=== PATIENT | female | born 1940 | race Caucasian/White ===

== ENCOUNTER → 2016-08-01 | Emergency (ER) | payer MEDICARE, OTHER ==
[~2016-08-01] VITALS: Ht 152.4 cm; Wt 99.8 kg
[~2016-08-01] MED LIST: ASPI-605 PO; CARV6.252 PO; FAMOTIDINE/PF INJ 20 MG/2 ML VIAL IV ONE; IV NS 0.9% 1,000 ML BAG IV ONE; IV NS 0.9% 1,000 ML ONE; IV SET PRIMARY 1 EA INFUS.SET MC ONE; IV SET PRIMARY PUMP SET 1 EA INFUS.SET MC ONE; diphenhydrAMINE HCL 50 MG/ML VIAL IV ONE; diphenhydrAMINE HCL 50 MG/ML VIAL ONE; methylPREDNISolone SOD SUCC 125 MG/2ML VIAL IV ONE; methylPREDNISolone SOD SUCC 125 MG/2ML VIAL ONE
--- NOTE | 2016-08-01 01:10 | NUR ---
To bed 10 a 76 yo female bib with c/o generalized body rashes. Per patient she has been itching yesterday. Patient is aaox4, wallisian speaking, noted with generalized body rash, flushed warm skin noted. Respiration even and unlabored. No SOB. Gowned. Placed on pvc monitor. Comfort measures rendered. Awaiting for er md coe.
--- NOTE | 2016-08-01 02:25 | NUR ---
Started saline lock 22g on left hand.
--- NOTE | 2016-08-01 04:29 | NUR ---
IV removed. Catheter intact and site benign. Pressure and 4x4 applied to site. No bleeding noted. Patient discharged to home in stable condition. Written and verbal after care instructions given. Patient verbalizes understanding of instruction. Patient is ambulatory with steady gait.
[2016-08-01 04:32] VITALS: BP 147/62
== END | disposition home or self-care (01) ==
LOC: ER 00:31
DX: L50.9 Urticaria, unspecified (principal); E11.9 Type 2 diabetes mellitus without complications; E78.00 Pure hypercholesterolemia, unspecified; I10 Essential (primary) hypertension; K21.9 Gastro-esophageal reflux disease without esophagitis; L40.9 Psoriasis, unspecified; Z79.82 Long term (current) use of aspirin; Z88.5 Allergy status to narcotic agent; Z91.018 Allergy to other foods
CPT/HCPCS: A4606; J1200; J2930; J3490; J7030; Z7610

== ENCOUNTER 2016-08-04 12:26 | Emergency (ER) | payer MEDICARE, OTHER ==
[~2016-08-04] VITALS: Ht 152.4 cm; Wt 70.8 kg
[~2016-08-04 12:26] MED LIST changes: -FAMOTIDINE/PF INJ 20 MG/2 ML VIAL IV ONE; -IV NS 0.9% 1,000 ML BAG IV ONE; -IV NS 0.9% 1,000 ML ONE; -IV SET PRIMARY 1 EA INFUS.SET MC ONE; -IV SET PRIMARY PUMP SET 1 EA INFUS.SET MC ONE; -diphenhydrAMINE HCL 50 MG/ML VIAL IV ONE; -diphenhydrAMINE HCL 50 MG/ML VIAL ONE; -methylPREDNISolone SOD SUCC 125 MG/2ML VIAL IV ONE; -methylPREDNISolone SOD SUCC 125 MG/2ML VIAL ONE
[2016-08-04 12:51] LABS: BASOPHILS % (AUTO) 0.3 % (0.0-2.0); EOSINOPHILS # (AUTO) 0.2 /CMM (0.0-0.7); EOSINOPHILS % (AUTO) 2.1 % (0.0-6.0); HEMATOCRIT 39 % (33-45); HEMOGLOBIN 12.9 g/dL (11.5-14.8); LYMPHOCYTES # (AUTO) 1.9 /CMM (0.8-4.8); LYMPHOCYTES % (AUTO) 24.8 % (20.0-44.0); MEAN CORPUSCULAR HEMOGLOBIN 29 PG (26.0-33.0); MEAN CORPUSCULAR HGB CONC 33 g/dl (31.0-36.0); MEAN CORPUSCULAR VOLUME 86 fL (82-100); MONOCYTES # (AUTO) 0.3 /CMM (0.1-1.30); NEUTROPHILS # (AUTO) 5.4 /CMM (1.8-8.9); NEUTROPHILS % (AUTO) 68.8 % (43.0-81.0); PLATELET COUNT (AUTO) 326 /CMM (150-450); RDW COEFFICIENT OF VARIATION 13.6 (11.5-15.0); WHITE BLOOD COUNT (AUTO) 7.8 K/uL (4.3-11.0)
[2016-08-04] MEDS ORDERED: diphenhydrAMINE HCL 50 MG/ML VIAL IV ONE (13:00)
[2016-08-04] MEDS ORDERED: methylPREDNISolone SOD SUCC 125 MG/2ML VIAL IV ONE (13:00)
[2016-08-04 13:01] LABS: CALCIUM, SERUM 9.1 mg/dL (8.5-10.1); POTASSIUM 3.3 mmol/L (3.5-5.1)
[2016-08-04] MEDS ORDERED: predniSONE 20 MG TABLET ONE (13:05)
[2016-08-04] MEDS ORDERED: diphenhydrAMINE HCL 50 MG CAPSULE ONE (13:05)
[2016-08-04 13:19] VITALS: BP 145/83
--- NOTE | 2016-08-04 13:20 | NUR ---
Patient discharged to home in stable condition. Written and verbal after care instructions given. Patient verbalizes understanding of instruction. Prescription given to patient and patients family.
[2016-08-04] MEDS ORDERED: predniSONE 10 MG TABLET PO ONE (13:30)
[2016-08-04] MEDS ORDERED: diphenhydrAMINE HCL 50 MG CAPSULE PO ONE (13:30)
== END 2016-08-04 13:26 | disposition home or self-care (01) ==
LOC: ER 12:27
DX: L50.9 Urticaria, unspecified (principal); I10 Essential (primary) hypertension; I99.8 Other disorder of circulatory system; E78.00 Pure hypercholesterolemia, unspecified; Z88.6 Allergy status to analgesic agent; Z91.018 Allergy to other foods
CPT/HCPCS: 36415; 80048; 85025; 99284; A4606; J7512; Q0163; Z7610

== ENCOUNTER 2017-02-23 13:58 | Emergency (ER) | payer MEDICARE, OTHER ==
[~2017-02-23] VITALS: Ht 154.9 cm; Wt 69.9 kg
--- NOTE | 2017-02-23 14:40 | NUR ---
BB FAMILY: PELVIC PAIN, AND PAIN ON URINATION X 1 MONTH. SEEN BY MD FOR EVAL. NAD NOTED. FAMILY MEMBER AT BS FOR INFO. VSS. SAFETY AND COMFORT MEASURES PROVIDED. WILL MONITOR.
[2017-02-23 15:01] LABS: BASOPHILS % (AUTO) 0.6 % (0.0-2.0); EOSINOPHILS # (AUTO) 0.2 /CMM (0.0-0.7); EOSINOPHILS % (AUTO) 2.8 % (0.0-6.0); HEMATOCRIT 37 % (33-45); HEMOGLOBIN 12.5 g/dL (11.5-14.8); LYMPHOCYTES # (AUTO) 1.9 /CMM (0.8-4.8); LYMPHOCYTES % (AUTO) 24.3 % (20.0-44.0); MEAN CORPUSCULAR HEMOGLOBIN 29 PG (26.0-33.0); MEAN CORPUSCULAR HGB CONC 34 g/dl (31.0-36.0); MEAN CORPUSCULAR VOLUME 85 fL (82-100); MONOCYTES # (AUTO) 0.4 /CMM (0.1-1.30); MONOCYTES % (AUTO) 4.8 % (2.0-12.0); NEUTROPHILS # (AUTO) 5.2 /CMM (1.8-8.9); NEUTROPHILS % (AUTO) 67.5 % (43.0-81.0); PLATELET COUNT (AUTO) 277 /CMM (150-450); RED BLOOD CELL COUNT(AUTO) 4.38 MIL/uL (4.0-5.2); WHITE BLOOD COUNT (AUTO) 7.7 K/uL (4.3-11.0)
[2017-02-23 15:09] LABS: CALCIUM, SERUM 9.4 mg/dL (8.5-10.1); CARBON DIOXIDE 24 mmol/L (21-32); CHLORIDE 107 mmol/L (98-107); CREATININE 0.8 mg/dL (0.6-1.3); GLUCOSE 90 mg/dL (74-106); POTASSIUM 3.9 mmol/L (3.5-5.1); SODIUM SERUM 140 mmol/L (136-145); UREA NITROGEN, BLOOD 19 mg/dL (7-18)
[2017-02-23 15:18] LABS: ALANINE AMINOTRANSFERASE 32 U/L (12-78); ALKALINE PHOSPHATASE 83 U/L (46-116); ASPARTATE AMINOTRANSFERASE 23 U/L (15-37); BILIRUBIN,DIRECT 0.1 mg/dL (0.0-0.2); BILIRUBIN,TOTAL 0.6 mg/dL (0.2-1.0); LIPASE 285 U/L (73-393); TOTAL PROTEIN, SERUM 7.6 g/dL (6.4-8.2)
--- NOTE | 2017-02-23 15:20 | NUR ---
ASSISTED WITH PE. URINE SAMPLE OBTAINED, SENT.
[2017-02-23 15:32] LABS: APPEARANCE,URINE Clear (CLEAR); BILIRUBIN,URINE Negative (NEGATIVE); BLOOD, URINE Trace-lysed Ery/uL (NEGATIVE); COLOR,URINE Yellow (YELLOW); KETONES,URINE Negative (NEGATIVE); LEUKOCYTE ESTERASE ,URINE Small (NEGATIVE); NITRITE, URINE Positive (NEGATIVE); PH,URINE 5.5 (5.0-8.0); PROTEIN,URINE Negative (NEGATIVE); UGLUCOSE Negative (NEGATIVE); UROBILINOGEN,URINE 0.2 EU/dL (0.2)
[2017-02-23 15:33] LABS: BACTERIA,URINE Rare /HPF (None Seen); RBC,URINE 0-2 /HPF (0-2)
[2017-02-23 15:34] LABS: SQUAMOUS EPITHELIAL CELL,UR Few /HPF (None Seen)
--- NOTE | 2017-02-23 16:00 | NUR ---
Patient discharged to home in stable condition. Written and verbal after care instructions given. Patient verbalizes understanding of instruction.
[2017-02-23 16:09] VITALS: BP 129/84
== END 2017-02-23 16:10 | disposition home or self-care (01) ==
LOC: ER 14:01
DX: N76.0 Acute vaginitis (principal); N39.0 Urinary tract infection, site not specified; E78.00 Pure hypercholesterolemia, unspecified; I10 Essential (primary) hypertension; E11.9 Type 2 diabetes mellitus without complications; Z88.5 Allergy status to narcotic agent; Z91.018 Allergy to other foods; Z79.82 Long term (current) use of aspirin
CPT/HCPCS: 36415; 80048; 80076; 81001; 83690; 85025; 87077; 87086; 87186; 99284; A4606; 81000-TC; Z7610